=== PATIENT | female | born 1995 | race Caucasian/White ===

== ENCOUNTER 2019-07-26 21:57 | Emergency (ER) | payer MEDICAID ==
[2019-07-26 22:10] VITALS: BP 124/70; PULSE 71
--- NOTE | 2019-07-26 22:16 | EDM.PDOC ---
ED HPI GENERAL MEDICAL PROBLEM - General Chief Complaint: Gastrointestinal Problem Stated Complaint: nausea, 4 weeks Time Seen by Provider: 07/26/19 22:15 Source of Information: Reports: Patient History Limitations: Reports: No Limitations - History of Present Illness INITIAL COMMENTS - FREE TEXT/NARRATIVE: Discovery date that she was was on Friday. Patient became nauseated on Friday. She says that she is has any difficulty keeping stuff down. She has been dry heaving. She says that she did try saltines. This is not her first . I did not feel the need that we needed to do a ultrasound. I did do a quantitative hCG for comparison sake and a baseline. The patient has had ruptured membranes in the past. CBC and chemistry came back normal. We did give her Zofran and IV fluids and she did improve. The patient will continue her care. She should also quit smoking. Onset: Gradual Duration: Getting Worse Location: Reports: Abdomen Improves with: Reports: None Lower Back Pain Score (Numeric/FACES): 8 - Related Data Allergies Allergy/AdvReac Type Severity Reaction Status Date / Time bee pollen Allergy Anaphylactic Verified 07/27/15 12:50 Shock tomatoes Allergy Hives Uncoded 07/27/15 12:50 Home Meds: Home Meds Pnv No.95/Ferrous Fum/Folic AC [ Caplet] 1 each PO DAILY 07/26/19 [ History] Past Medical History - Past Health History Medical/Surgical History: Denies Medical/Surgical History Cardiovascular History: Reports: Heart Murmur Other Cardiovascular History: heart murmur in childhood, reportedly resolved Respiratory History: Reports: Asthma, Other (See Below) Other Respiratory History: Has not required to use an inhaler in over a year. 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 Endocrine/Metabolic History: Reports: None Hematologic History: Reports: None Immunologic History: Reports: None Oncologic (Cancer) History: Reports: None Dermatologic History: Reports: None - Past Surgical History HEENT Surgical History: Reports: Oral Surgery Cardiovascular Surgical History: Reports: None Respiratory Surgical History: Reports: None Endocrine Surgical History: Reports: None Neurological Surgical History: Reports: None Musculoskeletal Surgical History: Reports: None Oncologic Surgical History: Reports: None Social & Family History - Family History Family Medical History: Noncontributory - Tobacco Use Smoking Status *Q: Current Every Day Smoker Years of Tobacco use: 6 Packs/Tins Daily: 0.5 - Caffeine Use Caffeine Use: Reports: Soda Other Caffeine Use: 2 cans of mountain dew daily. ED ROS GENERAL - Review of Systems Review Of Systems: ROS reveals no pertinent complaints other than HPI. ED EXAM, GI/ABD - Physical Exam Exam: See Below Exam Limited By: No Limitations General Appearance: Alert, Mild Distress, Moderate Distress Respiratory/Chest: No Respiratory Distress, Lungs Clear, Normal Breath Sounds, No Accessory Muscle Use, Chest Non-Tender Cardiovascular: Normal Peripheral Pulses, Regular Rate, Rhythm, No Edema, No Gallop, No JVD, No Murmur, No Rub GI/Abdominal Exam: Normal Bowel Sounds, Tender. No: Mass Neurological: Alert, Oriented Psychiatric: Anxious Skin Exam: Warm, Dry Lymphatic: No Adenopathy Course - Vital Signs Last Recorded V/S: Last Vital Signs Temp 36.3 C 07/26/19 22:07 Pulse 71 07/26/19 22:07 Resp 16 07/26/19 22:07 BP 124/70 07/26/19 22:07 Pulse Ox 100 07/26/19 22:07 - Orders/Labs/Meds Orders: Active Orders 24 hr Category Date Time Status [facility] [REF] Stat Lab 07/26/19 22:46 Received Labs: Laboratory Tests 07/26/19 07/26/19 Range/Units 22:46 22:46 WBC 8.2 (4.0-10.0) x10^3/uL RBC 4.49 (4.00-5.50) x10^6/uL Hgb 13.7 (12.0-16.0) g/dL Hct 40.6 (33.0-47.0) % MCV 90.4 (78.0-93.0) fL MCH 30.5 (26.0-32.0) pg MCHC 33.7 (32.0-36.0) g/dL RDW Coeff of Jessica 12.2 (10.0-15.0) % Plt Count 224 (130-400) x10^3/uL Neut % (Auto) 78.4 (50.0-80.0) % Lymph % (Auto) 15.9 L (25.0-50.0) % [place] % (Auto) 5.1 (2.0-11.0) % Eos % (Auto) 0.5 (0.0-4.0) % Baso % (Auto) 0.1 L (0.2-1.2) % Sodium 139 (69-191) mmol/L Potassium 3.8 (1.5-9.9) mmol/L Chloride 104 (54-184) mmol/L Carbon Dioxide 24 (21-32) mmol/L Anion Gap 14.8 (10-20) mmol/L BUN 8 (7-18) mg/dL Creatinine 0.7 (0.55-1.02) mg/dL Est Cr Clr Drug Dosing TNP Estimated GFR (MDRD) > 60 Glucose 97 (74-106) mg/dL Calcium 8.7 (8.5-10.1) mg/dL Corrected Calcium 9.02 (8.5-10.1) mg/dL Magnesium 2.0 (1.8-2.4) mg/dL Total Bilirubin 0.4 (0.2-1.0) mg/dL AST 14 L (15-37) U/L ALT 14 (14-59) U/L Alkaline Phosphatase 85 (46-116) U/L Total Protein 7.1 (6.4-8.2) g/dL Albumin 3.6 (3.4-5.0) g/dL Globulin 3.5 Albumin/Globulin Ratio 1.03 Meds: Medications Discontinued Medications Generic Name Dose Route Start Last Admin Trade Name Freq PRN Reason Stop Dose Admin Sodium Chloride 1,000 mls @ 999 mls/hr 07/26/19 22:21 07/26/19 22:37 Normal Saline IV 07/26/19 23:21 999 mls/hr .BOLUS ONE Administration Ondansetron HCl 4 mg 07/26/19 22:21 07/26/19 22:37 Zofran IVPUSH 07/26/19 22:22 4 mg ONETIME ONE Administration Departure - Departure Time of Disposition: 23:31 Disposition: Home, Self-Care 01 Condition: Good Clinical Impression: Nausea and vomiting during prior to 22 weeks gestation - Discharge Information *PRESCRIPTION DRUG MONITORING PROGRAM REVIEWED*: No *COPY OF PRESCRIPTION DRUG MONITORING REPORT IN PATIENT SATISH: No Instructions: Dehydration, Adult, [id number], Nausea and Vomiting, Adult Referrals: PCP,None [Primary Care Provider] - Forms: ED Department Discharge Additional Instructions: Eat bland food. Try to stay hydrated. Labs are normal. Continue your care. Your HCG quant value will be back in a day or 2 and will send it to your OB. - My Orders Last 24 Hours: My Active Orders 07/26/19 22:46 [facility] [REF] Stat - Assessment/Plan Last 24 Hours: My Active Orders 07/26/19 22:46 [facility] [[facility]] Stat
[2019-07-26] MEDS ORDERED: Sodium Chloride 0.9% 1,000 ML IV ONE (22:21)
[2019-07-26] MEDS ORDERED: Ondansetron 4 MG/2 ML SDV IVPUSH ONE (22:21)
[2019-07-26 23:31] LABS: CHLORIDE,CL 104 mmol/L (54-184); SODIUM,NA 139 mmol/L (69-191)
[2019-07-26 23:35] LABS: ANION GAP 14.8 mmol/L (10-20)
== END 2019-07-26 23:45 | disposition home or self-care (01) ==
LOC: VM.ED 21:57
DX: O21.2 Late vomiting of pregnancy (principal); O99.332 Smoking (tobacco) complicating pregnancy, second trimester; F17.210 Nicotine dependence, cigarettes, uncomplicated; Z91.030 Bee allergy status; Z91.018 Allergy to other foods; Z3A.22 22 weeks gestation of pregnancy
CPT/HCPCS: 36415; 80053; 83735; 84702; 85025; 96361; 96374; 99283; J2405; J7030

== ENCOUNTER 2020-06-11 06:43 | Emergency (ER) | payer MEDICAID ==
[2020-06-11 06:48] VITALS: BP 134/85; PULSE 65
[2020-06-11] MEDS ORDERED: Amoxicillin 500 MG Cap PO ONE (07:07)
[2020-06-11] MEDS ORDERED: traMADol 50 MG Tab PO ONE (07:09)
[2020-06-11] MEDS ORDERED: Take Home: Amoxicillin 500 MG Cap, 2 Cap Pack PO ONE (07:09)
--- NOTE | 2020-06-14 07:10 | EDM.PDOC ---
ED HPI GENERAL MEDICAL PROBLEM - General Chief Complaint: ENT Problem Stated Complaint: left ear pain Time Seen by Provider: 06/11/20 07:05 - History of Present Illness INITIAL COMMENTS - FREE TEXT/NARRATIVE: Patient comes emergency department today with complaints of left ear pain. Yesterday she was without any complaints. When she woke up this morning she has a very painful left ear. She has had no drainage from the ear. No fever no chills. No injury to the ear. No headache. She has not been swimming or had any water in her ear recently. She has no COVID symptoms or COVID exposure. Left Ear Pain Score (Numeric/FACES): 9 - Related Data Allergies Allergy/AdvReac Type Severity Reaction Status Date / Time bee pollen Allergy Anaphylactic Verified 06/11/20 06:44 Shock tomatoes Allergy Hives Uncoded 06/11/20 06:44 Home Meds: Home Meds Amoxicillin 1,000 mg PO BID #40 capsule 06/11/20 [Rx] Amphetamine Sulfate 20 mg PO DAILY 06/11/20 [History] lamoTRIgine [Lamotrigine] 100 mg pe PO DAILY 06/11/20 [History] Past Medical History - Past Health History Medical/Surgical History: Denies Medical/Surgical History Cardiovascular History: Reports: Heart Murmur Other Cardiovascular History: heart murmur in childhood, reportedly resolved Respiratory History: Reports: Asthma, Other (See Below) Other Respiratory History: Has not required to use an inhaler in over a year. 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 Endocrine/Metabolic History: Reports: None Hematologic History: Reports: None Immunologic History: Reports: None Oncologic (Cancer) History: Reports: None Dermatologic History: Reports: None - Past Surgical History HEENT Surgical History: Reports: Oral Surgery Cardiovascular Surgical History: Reports: None Respiratory Surgical History: Reports: None Endocrine Surgical History: Reports: None Neurological Surgical History: Reports: None Musculoskeletal Surgical History: Reports: None Oncologic Surgical History: Reports: None Social & Family History - Family History Family Medical History: Noncontributory - Tobacco Use Smoking Status *Q: Current Every Day Smoker Years of Tobacco use: 10 Packs/Tins Daily: 0.5 - Caffeine Use Caffeine Use: Reports: Soda Other Caffeine Use: 2 cans of mountain dew daily. ED ROS ENT - Review of Systems Review Of Systems: Comprehensive ROS is negative, except as noted in HPI. ED EXAM, ENT - Physical Exam Exam: See Below Exam Limited By: No Limitations General Appearance: Alert, WD/WN, Mild Distress Eye Exam: Bilateral Eye: EOMI, PERRL Ears: Normal External Exam, Normal Canal, Hearing Grossly Normal, TM Erythema (L TM with fluid behind the TM and erythematous no perforation. R TM is unremarkab le. ) Nose: Normal Inspection, Normal Mucousa Mouth/Throat: Normal Inspection, Normal Gums, Normal Lips Head: Atraumatic, Normocephalic Neck: Normal Inspection, Supple Respiratory/Chest: No Respiratory Distress, Lungs Clear Cardiovascular: Normal Peripheral Pulses, Regular Rate, Rhythm Neurological: Alert, Oriented, CN II-XII Intact, Normal Cognition, No Motor/Sensory Deficits Skin: Warm, Dry, Intact, Normal Color Course - Vital Signs Last Recorded V/S: Last Vital Signs Temp 97.3 F 06/11/20 06:45 Pulse 65 06/11/20 06:45 Resp 16 06/11/20 06:45 BP 134/85 06/11/20 06:45 Pulse Ox 100 06/11/20 06:45 - Orders/Labs/Meds Meds: Medications Discontinued Medications Generic Name Dose Route Start Last Admin Trade Name Spencer PRN Reason Stop Dose Admin Amoxicillin 1,000 mg 06/11/20 07:07 06/11/20 07:20 Amoxil PO 06/11/20 07:08 1,000 mg ONETIME ONE Administration Amoxicillin 1 packet 06/11/20 07:09 06/11/20 07:20 Take Home: Amoxicillin 500 Mg, 2 Cap Pack PO 06/11/20 07:10 1 packet ONETIME ONE Administration Tramadol HCl 50 mg 06/11/20 07:09 06/11/20 07:20 Ultram PO 06/11/20 07:10 50 mg ONETIME ONE Administration Departure - Departure Time of Disposition: 07:15 Disposition: Home, Self-Care 01 Clinical Impression: AOM (acute otitis media) Qualifiers: Otitis media type: unspecified Qualified Code(s): H66.90 - Otitis media, unspecified, unspecified ear - Discharge Information Prescriptions: Amoxicillin 1,000 mg PO BID #40 capsule Instructions: Otitis Media, Adult, [id number] Referrals: Regina Brito MODELING AND SIMULATION ANALYST [Primary Care Provider] - Forms: ED Department Discharge Additional Instructions: Tylenol and or Ibuprofen as needed for pain. Amoxicillin, 1,000mg twice daily for the next 10 days. First dose given in the ED. Dose for tonight sent with and a RX sent to [facility]. Return to the ED if new or worsening symptoms. Follow up with PCP in the next week if not improving. Sepsis Event Note (ED) - Evaluation Sepsis Screening Result: No Definite Risk
== END 2020-06-11 07:23 | disposition home or self-care (01) ==
LOC: VM.ED 06:43
DX: H66.92 Otitis media, unspecified, left ear (principal); F31.9 Bipolar disorder, unspecified; F90.9 Attention-deficit hyperactivity disorder, unspecified type; F17.210 Nicotine dependence, cigarettes, uncomplicated; Z91.030 Bee allergy status; Z91.018 Allergy to other foods; Z79.899 Other long term (current) drug therapy
CPT/HCPCS: 99282; 99283; A9270-GY